=== PATIENT | female | born 1995 | race Caucasian/White ===

== ENCOUNTER 2017-05-29 06:13 | Emergency (ER) | payer MEDICAID ==
[2017-05-29 07:14] VITALS: BP 125/63
== END 2017-05-29 07:14 | disposition home or self-care (01) ==
LOC: ED 06:13
DX: T78.40XA Allergy, unspecified, initial encounter (principal); L29.9 Pruritus, unspecified; R21 Rash and other nonspecific skin eruption; X58.XXXA Exposure to other specified factors, initial encounter
CPT/HCPCS: Q0163